=== PATIENT | female | born 1950 | race Two or more races ===

== ENCOUNTER 2023-02-18 19:32 | Emergency (ER) | payer OTHER ==
[~2023-02-18] VITALS: Ht 170.2 cm; Wt 59.0 kg
[2023-02-18] MEDS ORDERED: TOPROL XL50 M1 (20:10)
== END 2023-02-19 00:22 | disposition home or self-care (01) ==
LOC: ER 19:33
DX: J32.9 Chronic sinusitis, unspecified (principal)